=== PATIENT | male | born 1945 | race Caucasian/White ===

== ENCOUNTER 2016-06-16 05:39 | Inpatient (IN) | payer OTHER ==
[2016-06-09 09:39] LABS: % IMMATURE GRANULYOCYTES 0.2 % (0.0-1.1); ABSOLUTE IMMATURE GRANULOCYTES 0.01 10^3/uL (0.00-0.10); ADD DIFF? NO; ADD MORPH? NO; ADD SCAN? NO; ATYPICAL LYMPHOCYTE FLAG 0 (0-99); FRAGMENT RBC FLAG 0 (0-99); HEMATOCRIT 48.8 % (40.0-51.0); HEMOGLOBIN 17.1 g/dL (13.7-17.5); LEFT SHIFT FLG 0 (0-99); LIPEMIA HEMOLYSIS FLAG 90 (0-99); MEAN CELL HEMOGLOBIN 30.8 pg (27.9-34.1); MEAN CELL VOLUME 87.9 fL (81.5-99.8); MEAN PLATELET VOLUME 9.7 fL (8.7-11.7); PLATELET CLUMPS FLAG 0 (0-99); PLATELET COUNT 193 10^3/uL (150-400); RED BLOOD CELL COUNT 5.55 10^6/uL (4.40-6.38); RED CELL DISTRIBUTION WIDTH 13.1 % (11.5-15.2)
[2016-06-16] MEDS ORDERED: LIDOCAINE 1% 2 ML INJ ONE (05:47)
[2016-06-16] MEDS ORDERED: LIDOCAINE 1% 5 ML SDV ID PRN (05:57)
[2016-06-16] MEDS ORDERED: LR 1,000 ML IV ONE (05:57)
[2016-06-16] MEDS ORDERED: CHLORHEXIDINE GLUC HIBICLENS 118 ML BTL TP ONE (06:30)
[2016-06-16] MEDS ORDERED: ACETAMINOPHEN 325 MG TAB PO ONE (06:30)
[2016-06-16] MEDS ORDERED: CEFAZOLIN 2 GM/DEXTR 100 ML IV ONE (06:30)
[2016-06-16] MEDS ORDERED: DEXAMETHASONE 4 MG/ML VIAL IVP ONE (06:30)
[2016-06-16] MEDS ORDERED: ROPI/epiNEPH/KETOROLAC/morphINE JOINT COCKTAIL IU ONE (06:30)
[2016-06-16] MEDS ORDERED: FAMOTIDINE 20 MG TAB PO ONE (06:30)
[2016-06-16] MEDS ORDERED: CALCIUM CHLORIDE 1 GM/10 ML INJ ONE (06:49)
[2016-06-16] MEDS ORDERED: THROMBIN (BOVINE) 5,000 UNIT VIAL TP ONE (06:49)
[2016-06-16] MEDS ORDERED: BACITRACIN 50,000 UNITS/10 ML SYR IRR ONE (06:49)
[2016-06-16] MEDS ORDERED: POLYMYXIN B SULFATE 500,000 UNIT/10 ML SYR IRR ONE (06:49)
[2016-06-16] MEDS ORDERED: PROPOFOL 200 MG/20 ML VIAL ONE ×2 (06:55)
[2016-06-16] MEDS ORDERED: fentaNYL 100 MCG/2 ML INJ ONE (06:56)
[2016-06-16] MEDS ORDERED: BUPIVACAINE 0.5% 30 ML SDV ONE (07:06)
[2016-06-16] MEDS ORDERED: MIDAZOLAM 2 MG/2 ML VIAL ONE (07:13)
[2016-06-16] MEDS ORDERED: BUPIVACAINE/EPI 0.5% 30 ML SDV ONE (08:50)
--- NOTE | 2016-06-16 09:24 | POSTOPPROG ---
Post Op Note Date of Operation: 06/16/16 Surgeon: Alysa Puentes Manager [employer] Relations: [employer] Anesthesia: Epidural, IV Sedation Pre-op Diagnosis: r knee oa Procedure: r tkr Inf/Abcess present in the surg proc area at time of surgery?: No Depth: Deep Incisional (Fascial) EBL: 50-100
[2016-06-16] MEDS ORDERED: LACTULOSE 20 GM/30 ML UDCUP PO PRN (09:25)
[2016-06-16] MEDS ORDERED: PROMETHAZINE HCL 25 MG SUPPR PR PRN (09:25)
[2016-06-16] MEDS ORDERED: CYCLOBENZAPRINE 10 MG TAB PO PRN (09:25)
[2016-06-16] MEDS ORDERED: BISACODYL 10 MG SUPP PR PRN (09:25)
[2016-06-16] MEDS ORDERED: TEMAZEPAM 15 MG CAP PO PRN (09:25)
[2016-06-16] MEDS ORDERED: ONDANSETRON DISINTEGRATING 4 MG TAB PO PRN (09:25)
[2016-06-16] MEDS ORDERED: PHARMACY PAIN CONSULT 1 EA MISC PRN (09:25)
[2016-06-16] MEDS ORDERED: DIPHENOXYLATE/ATROPINE LOMOTIL 1 TAB PO PRN (09:25)
[2016-06-16] MEDS ORDERED: MAGNESIUM HYDROXIDE 30 ML UDCUP PO PRN (09:25)
[2016-06-16] MEDS ORDERED: ONDANSETRON 4 MG/2 ML VIAL IVP PRN (09:25)
[2016-06-16] MEDS ORDERED: diphenhydrAMINE 25 MG CAP PO PRN (09:25)
[2016-06-16] MEDS ORDERED: METOCLOPRAMIDE 10 MG/2 ML VIAL IVP PRN (09:25)
[2016-06-16] MEDS ORDERED: POLYETHYLENE GLYCOL 3350 17 GM PKT PO PRN (09:25)
[2016-06-16] MEDS ORDERED: LR 1,000 ML IV SCH (09:30)
--- NOTE | 2016-06-16 10:30 | GOP ---
[f rep st] OPERATIVE REPORT DATE OF OPERATION: 06/16/2016 SURGEON: Alysa Puentes MD GLOBAL PRODUCT MANAGER: Gurjit Cano, CSFA, LSA, whose presence was medically necessary. ANESTHESIA: By epidural nerve block plus adductor nerve block per surgeon's request. PREOPERATIVE DIAGNOSIS: Right knee osteoarthritis. POSTOPERATIVE DIAGNOSIS: Right knee osteoarthritis. PROCEDURE PERFORMED: Right total knee arthroplasty. FINDINGS: INDICATIONS: This is a 70-year-old male with a long history of right knee pain worsening with use w ith time despite multiple conservative measures. He wishes to have surgery in order to resolve the problem. DESCRIPTION OF PROCEDURE: Patient brought to the operating room. After the right side had been nghia ntified as the correct side by the patient, nurse, and physician once in the operating room, he was given an epidural nerve block with IV sedation, with plans for an adductor nerve block to be done in the recovery room. Once in a supine position, tourniquet was placed around the upper portion of th e right leg, with right lower extremity sterilely prepped and draped in the usual fashion using GSI solution. Once prepped and draped, limb was exsanguinated, tourniquet inflated to 250 mmHg. Incisi on was made on the anterior portion of the knee 1 handbreadth above and below the patella with sharp dissection carried down through the skin, subcutaneous layers, with bleeding controlled using elect rocautery. A medial parapatellar incision was made through the extensor mechanism with the patella brought to the side but not everted. He was noted have grade 4 chondral changes of the medial and l ateral compartments. The ACL along with the medial and lateral meniscus and the Hoffa pad were julia james. A drill hole was made 1 cm anterior to the intercondylar notch with an intramedullary guide pl aced within the femur, and the end cutting block set at 5 degrees valgus and set to remove 8 mm of b one. Once pinned into place, the intramedullary guide was removed and oscillating saw was used to r emove distal 8 mm of bone. Once completed, cartilage was removed from bilateral posterior condyles, with a femoral sizing guide placed on the cut surface of the femur. It was pinned into place, note d a size 8 seemed to fit best without notching the anterior cortex of the femur. Therefore, the jv de was removed and a size 8 four-in-one cutting block was put into place. The anterior, posterior, and chamfer cuts were made, and a size 8 trial was [address] into place, noted to fit securely, knee was a ble to easily achieve full extension. Trial was put back in place and lug holes were drilled for th e femoral component. Femoral trial was removed. The knee was brought to maximal flexion with the t ibia subluxed anteriorly. An external tibial guide was put into place, set in neutral varus-valgus and slight posterior slope. Once pinned into place, a drop deidre was used to ensure proper positionin g, and a locking pin placed within the tibial tray. Oscillating saw was used to remove the proximal 4 mm of bone from the tibia. Once completed, trial femur, tibia and polyethylene were placed withi n the knee. The knee was able to easily achieve extension, suggesting enough bone had been taken; t herefore, the pins were removed from the proximal tibia. Multiple sizers were placed on the cut cruz face of the tibia, noted that a size 7 tibial tray seemed to fit best. It was therefore pinned into place. Keel punch was added to the tibial tray and a keel punch passed into the bone. Once comple slim, the trial was removed. Knee was brought to full extension. Patella was then everted. It was measured to be 28 mm in thickness. Oscillating saw was used to remove the posterior portion of the patella, leaving 18 mm of bone. Multiple sizes were trialed on the cut surface, noted a 35 mm [place] lar button would fit best. Therefore, lug holes were drilled for a 35 mm button. All cut surfaces of bone were then thoroughly irrigated with antibiotic solution using pulsatile lavage while cement was being mixed. Once cement was doughy, it was placed on the proximal surface of the tibia with a size 7 triathlon tibial base plate put into place with excess cement removed using [place] elevator. Cement was then placed on the posterior skids of the femoral component with cement placed on the dis shin and anterior portions of the bone, and a size 8 triathlon cruciate-retaining femoral component f rom [place] put into place and excess cement removed using [place] elevator. Trial liner was placed i n the tibial tray, knee brought to full extension under pressurized cement. Cement was then placed on the posterior cut surface of the patella and a 35 mm patellar button was put into place, with exc ess cement removed using [place] elevator. While the cement was hardening, joint cocktail was injecte d into the posterior capsule along the periosteum of the femur and the tibia. Once the cement had h ardened, any excess cement found was removed using a combination of osteotome and rongeur. Multiple trials were placed in the tibial tray, noted that a 13 mm polyethylene liner seemed to fit best. T herefore, 13 mm polyethylene liner was snapped into the tibial tray. Once firmly in place the knee was able to achieve full flexion, was stable to varus and valgus. Knee was brought to 30 degrees of flexion. Tourniquet was deflated at 62 minutes. Any bleeding that was found was controlled using electrocautery. The wound was closed in layers, to include 0 Vicryl suture in a [id number] typ e stitch for the extensor mechanism, plasma gel placed intra-articularly. 0 Vicryl and 2-0 Vicryl s uture used to close the subcutaneous layers with plasma gel placed external to the extensor mechanis m, and a 4-0 V-Loc suture in a running subcuticular stitch used for the skin. The wound was then dr essed with Steri-Strips, Xeroform, 4x4, and Kerlix. Leg was completely undraped in the operating ro om, tourniquet removed from the thigh, and an Jason wrap placed around the knee. He was then transfer red onto a stretcher and sent to recovery room in good condition. /[id number]/MODL
[2016-06-16] MEDS: KETOROLAC 30 MG/1 ML SDV IVP SCH ×2 (10:57→18:47)
[2016-06-16] MEDS: ACETAMINOPHEN 325 MG TAB PO SCH ×3 (11:31→23:30)
[2016-06-16] MEDS: traMADol 50 MG TAB PO SCH ×2 (11:32→18:47)
[2016-06-16] MEDS: oxyCODONE IR 5 MG TAB PO PRN ×4 (12:42→21:26)
[2016-06-16] MEDS: ceFAZolin 2 GM/DEXTROSE 100 ML IV SCH ×2 (15:03→23:30)
[2016-06-16] MEDS: FAMOTIDINE 20 MG TAB PO SCH (21:26)
[2016-06-16] MEDS: SENNOSIDES/DOCUSATE SODIUM TAB PO SCH (21:26)
[2016-06-17] MEDS: KETOROLAC 30 MG/1 ML SDV IVP SCH ×4 (00:33→21:21)
[2016-06-17] MEDS: traMADol 50 MG TAB PO SCH ×5 (00:34→23:21)
[2016-06-17 04:42] LABS: HEMATOCRIT 38.3 % (40.0-51.0)
[2016-06-17] MEDS: ACETAMINOPHEN 325 MG TAB PO SCH ×4 (05:53→23:20)
[2016-06-17] MEDS: SENNOSIDES/DOCUSATE SODIUM TAB PO SCH ×2 (08:58→20:35)
[2016-06-17] MEDS: ATORVASTATIN CALCIUM 20 MG TAB PO SCH (08:58)
[2016-06-17] MEDS: FAMOTIDINE 20 MG TAB PO SCH ×2 (08:58→20:35)
[2016-06-17] MEDS ORDERED: RIVAROXABAN 10 MG TAB PO SCH (09:00)
--- NOTE | 2016-06-17 10:53 | SOAPPROG ---
SOAP Progress Note Assessment/Plan: Assessment: POD 1 sp R TKA Plan: - d/c home with PT 06/17/16 10:52 Subjective: Doing well, did stairs with PT, waiting to work with OT Objective: Vital Signs Temp Pulse Resp BP Pulse Ox 36.6 C 57 L 15 143/86 H 98 06/17/16 08:22 06/17/16 08:22 06/17/16 08:22 06/17/16 08:22 06/17/16 08:22 Laboratory Results 06/17/16 04:11 06/16/16 06/17/16 06/18/16 05:59 05:59 05:59 Intake Total 3620 Output Total 1350 Balance 2270 Wound CDI, mild blood on dressing, calf NT neg Homman's, NVI - Time Spent With Patient Time Spent With Patient: 15 - Pending Discharge Pending Discharge Within 24 Hours: Yes Pending Discharge Within 48 Hours: No Pending Discharge Date: 06/18/16 Pending Discharge Time: 11:00 ICD10 Worksheet Patient Problems: Problems Problem Status Onset Arthritis of right knee Acute - ICD10 Problem Qualifiers (1) Arthritis of right knee
--- NOTE | 2016-06-17 10:56 | PDIAF ---
- Diagnosis Code Status: Full Code - Medication Management Discharge Medications: Medications to Continue on Transfer Herbals/Supplements -Info Only 1 ea PO DAILY 06/03/16 [Last Taken 1 Week Ago] Naproxen Sodium [Aleve 220 MG (*)] 220 mg PO DAILY PRN 06/03/16 [Last Taken 1 Week Ago] SIMVASTATIN 40 mg PO DAILY@0700 06/03/16 [Last Taken 06/15/16 06:00] Rivaroxaban [Xarelto 10mg (*)] 10 mg PO DAILY #0 tab 06/17/16 [Last Taken Unknown] oxyCODONE IR [Oxycodone Ir (*)] 5 - 10 mg PO Q3HRS PRN #0 tab 06/17/16 [Last Taken Unknown] traMADol [Ultram 50 mg (*)] 50 mg PO Q6HRS #0 tab 06/17/16 [Last Taken Unknown] Discharge Medications: Refer to the Discharge Home Medication list for PRN reason. PICC Care - Routine: N/A - Orders Services needed: Physical Therapy Diet Recommendation: no restrictions on diet Diet Texture: Regular Texture Diet Welch: Not applicable Activity/Weight Bearing Restrictions: WBAT - Follow Up Care Current Providers and Referrals: STEVE BYNUM MD [Other]
[2016-06-17] MEDS: oxyCODONE IR 5 MG TAB PO PRN (16:41)
[2016-06-18] MEDS: KETOROLAC 30 MG/1 ML SDV IVP SCH ×3 (00:24→05:52)
[2016-06-18 05:06] LABS: HEMATOCRIT 34.9 % (40.0-51.0); HEMOGLOBIN 11.9 g/dL (13.7-17.5)
[2016-06-18] MEDS: ACETAMINOPHEN 325 MG TAB PO SCH ×2 (05:51→12:56)
[2016-06-18] MEDS: traMADol 50 MG TAB PO SCH ×2 (05:52→12:56)
[2016-06-18 07:40] VITALS: BP 121/67; PULSE 53; RESP 20; TEMP 97.8; O2SAT 93
[2016-06-18] MEDS: ATORVASTATIN CALCIUM 20 MG TAB PO SCH (08:15)
[2016-06-18] MEDS: FAMOTIDINE 20 MG TAB PO SCH (08:15)
[2016-06-18] MEDS: SENNOSIDES/DOCUSATE SODIUM TAB PO SCH (08:16)
[2016-06-18] MEDS: oxyCODONE IR 5 MG TAB PO PRN (08:16)
[2016-06-18] MEDS ORDERED: RIVAROXABAN 10 MG TAB PO SCH (09:00)
--- NOTE | 2016-06-18 11:59 | SOAPPROG ---
SOAP Progress Note Assessment/Plan: Assessment: POD 1 sp R TKA Plan: - d/c home with PT 06/17/16 10:52 Subjective: Bleeding has stopped Objective: Vital Signs Temp Pulse Resp BP Pulse Ox 36.6 C 53 L 20 121/67 H 93 06/18/16 07:39 06/18/16 07:39 06/18/16 07:39 06/18/16 07:39 06/18/16 07:39 Laboratory Results 06/18/16 04:27 06/17/16 06/18/16 06/19/16 05:59 05:59 05:59 Intake Total 3620 300 Output Total 1350 Balance 2270 300 No drainage - Time Spent With Patient Time Spent With Patient: 15 - Pending Discharge Pending Discharge Within 24 Hours: Yes Pending Discharge Within 48 Hours: Yes Pending Discharge Date: 06/19/16 Pending Discharge Time: 11:00 ICD10 Worksheet Patient Problems: Problems Problem Status Onset Arthritis of right knee Acute - ICD10 Problem Qualifiers (1) Arthritis of right knee
== END 2016-06-18 13:11 | disposition home health service (06) | DRG 470 ==
LOC: F3N 05:39
PROVIDERS: ADMIT Orthopaedic Surgery; ATTEND Orthopaedic Surgery
PROC: 0SRC0J9 Replacement of Right Knee Joint with Synthetic Substitute, Cemented, Open Approach (ICD-10-PCS; principal; 2016-06-16 07:15)
DX: M17.11 Unilateral primary osteoarthritis, right knee (principal); E78.00 Pure hypercholesterolemia, unspecified
CPT/HCPCS: 97110-GP; 97116-GP; 97161-GP; 97165-GO; 97530-GP; C1713; G8978-GP-CJ; G8979-GP-CI; G8980-GP-CI; G8987-GO-CI; G8988-GO-CI; G8989-GO-CI; J0171; J0690; J1100; J1885; J2250; J2704; J2795; J3010; L1832